=== PATIENT | male | born 1985 | race Hispanic/Latino ===

== ENCOUNTER 2020-07-29 08:43 | Emergency (ER) | payer BC, SELFPAY ==
--- NOTE | ~2020-07-29 | XR_ITS ---
XR chest 2V DATE: 07/29/2020 09:07 INDICATION: Upper chest pain, body aches TECHNIQUE: PA and lateral views COMPARISON: None FINDINGS: Normal heart size. No hilar or mediastinal enlargement. The lungs are normally inflated and clear of infiltrate or consolidation. No pleural effusion or pulmonary vascular congestion or pneumo thorax. Included skeletal structures are unremarkable. IMPRESSION: Negative Reviewed, dictated and finalized at location A. TSPERSON IMPRESSION: Negative
[2020-07-29 08:53] VITALS: BP 115/82; PULSE 60; RESP 18; TEMP 37; O2SAT 99
--- NOTE | 2020-07-29 08:56 | ED.URI ---
HPI - URI/Sore Throat General Chief Complaint: Upper Respiratory Infection Stated Complaint: body pain Source: patient Mode of arrival: ambulatory Limitations: no limitations History of Present Illness HPI Narrative: Patient is a 34-year-old male who presents with intermittent fever and sore throat, body aches, headache and fatigue. Patient reports symptoms started approximately 7 days ago. He denies cough and shortness of breath. He denies all other complaints. He denies pain at this time. MD elicited complaint: fever, cough, sore throat and other (Fatigue) Related Data Home Medications Medication Instructions Recorded Confirmed No Home Medications 07/29/20 07/29/20 Allergies Allergy/AdvReac Type Severity Reaction Status Date / Time peanut Allergy Unknown Unknown Verified 07/29/20 08:48 Review of Systems Review of Systems: Narrative: CONSTITUTIONAL: Reports intermittent fever, Reports body aches and fatigue EYES: Denies visual changes, redness, or discharge. ENT: Reports intermittent sore throat CARDIOVASCULAR: Denies chest pain, palpitations, or edema. RESPIRATORY: Denies cough or dyspnea. GASTROINTESTINAL: Denies abdominal pain, nausea, vomiting, or diarrhea. GENITOURINARY: Denies dysuria or hematuria. SKIN: Denies rash or itching. MUSCULOSKELETAL: Denies back pain, joint pain, or myalgia. NEUROLOGIC: Reports headache, denies numbness, dizziness, or weakness. PSYCHIATRIC: Denies anxiety or depression. PMFSH Past Medical History Medical History (Updated 07/29/20 @ 09:39 by ODIN Reich) No significant past medical history Surgical History Surgical History (Updated 07/29/20 @ 09:05 by ODIN Reich) No significant past surgical history Family History Family History Other No significant family history Social History Social History (Updated 07/29/20 @ 09:05 by ODIN Reich) Smoking status: Never smoker Alcohol intake: never Substance use: never Living arrangements: with family Occupation/Education: occupation Exam Narrative: Exam Narrative: GENERAL: Well-appearing, well-nourished, and in no acute distress. HEAD: Normocephalic, atraumatic. EYES: No redness or drainage. Conjunctiva are normal. ENT: Mucous membranes pink and moist. Nares clear. No rhinorrhea. Throat normal. Uvula midline. NECK: AROM. Supple. No lymphadenopathy. CHEST: No respiratory distress. Clear to auscultation. HEART: Regular rate and rhythm. EXTREMITIES: Normal range of motion. SKIN: Warm, dry, no rash. NEURO: No focal deficits. Alert and oriented x3. Gait steady. PSYCH: Normal affect. No signs of depression or anxiety. Course Vital Signs Vital signs: Vital Signs Temperature 37.0 C 07/29/20 08:53 Pulse Rate 60 07/29/20 08:53 Respiratory Rate 18 07/29/20 08:53 Blood Pressure 115/82 07/29/20 08:53 Pulse Oximetry 99 07/29/20 08:53 Temperature 37.0 C 07/29/20 08:53 Pulse Rate 60 07/29/20 08:53 Respiratory Rate 18 07/29/20 08:53 Blood Pressure 115/82 07/29/20 08:53 Pulse Oximetry 99 07/29/20 08:53 Reviewed MDM - URI/Sore Throat MDM Narrative Medical decision making narrative: Patient's rapid strep and influenza are negative. Discussed with patient symptoms are common with Covid. Discussed Covid testing with patient. Patient requesting Covid testing at this time. Patient aware of the need to quarantine. Or if he develops chest pain or shortness of breath that he needs to go to the emergency department immediately for further evaluation. Patient is stable for discharge to home with outpatient follow-up as needed. Differential Diagnosis Differential diagnosis: Likely upper respiratory infection, sinusitis, viral infection, bronchitis and other (Covid) Lab Data Lab results narrative: Negative strep, negative influenza Critical Care Time Critical Care Time Critical Care Time:
== END 2020-07-29 09:42 | disposition home or self-care (01) ==
PROVIDERS: Emergency Provider Nurse Practitioner
DX: J06.9 Acute upper respiratory infection, unspecified (principal); Z20.828 Contact with and (suspected) exposure to other viral communicable diseases
CPT/HCPCS: 71046; 87081; 87804; 87880; 99213; G0463

== ENCOUNTER 2022-01-06 18:13 | Emergency (ER) | payer BC, SELFPAY ==
[2022-01-06 18:28] VITALS: BP 134/78; PULSE 84; RESP 16; TEMP 36.9; O2SAT 98
--- NOTE | 2022-01-06 18:41 | ED.GENADULT ---
HPI - General Adult General Chief complaint: Upper Respiratory Infection Stated complaint: soret throat Source: patient Mode of arrival: ambulatory Limitations: no limitations History of Present Illness HPI narrative: Patient presents for evaluation of sore throat since Friday. He states he developed fever, cervical lymphadenopathy, generalized body aches. No chills, nausea, vomiting, diarrhea, cough, shortness of breath. No recent sick contacts to his knowledge. He does not smoke. He has been using tylenol and ibuprofen which do seem to help his symptoms. No additional complaints or concerns. Related Data Allergies Allergy/AdvReac Type Severity Reaction Status Date / Time peanut Allergy Unknown Unknown Verified 01/06/22 18:25 Review of Systems Review of Systems: CONSTITUTIONAL: Reports fever. Denies chills, or sweats. EYES: Denies visual changes, redness, or discharge. ENT: Reports sore throat. Denies rhinorrhea, nasal congestion, or otalgia. CARDIOVASCULAR: Denies chest pain, palpitations, or edema. RESPIRATORY: Denies cough or dyspnea. GASTROINTESTINAL: Denies abdominal pain, nausea, vomiting, or diarrhea. GENITOURINARY: Denies dysuria or hematuria. SKIN: Denies rash or itching. MUSCULOSKELETAL: Reports generalized body aches NEUROLOGIC: Denies headache, numbness, dizziness, or weakness. PSYCHIATRIC: Denies anxiety or depression. PMFSH Past Medical History Medical History No significant past medical history Surgical History Surgical History No significant past surgical history Family History Family History Other No significant family history Social History Social History Smoking status: Never smoker Alcohol intake: current Alcohol use details: social Substance use: never Gender identity (if verbalized by the patient): Male Sexual Orientation (if Verbalized by the Patient): Straight or Heterosexual Spiritual care concerns: No Exam Narrative: GENERAL: Well-appearing, well-nourished, and in no acute distress. HEAD: Normocephalic, atraumatic. EYES: PERRLA and EOMI. ENT: Nares clear, no rhinorrhea or epistaxis. Mucous membranes moist. Bilateral tonsillar enlargement with white exudate. Uvula is midline. Bilateral TMs pearly vasquez nonbulging NECK: Supple. No adenopathy or masses. No carotid bruits or JVD CHEST: Clear to auscultation. No respiratory distress. No wheezes rales or rhonchi HEART: Regular rate and rhythm. No murmur heard. Normal peripheral pulses. ABDOMEN: Soft, nontender, nondistended, normal active bowel sounds. EXTREMITIES: Normal range of motion. No edema. SKIN: Warm, dry, no rash. NEURO: No focal deficits. Alert and oriented x3. PSYCH: Normal mood and affect. Course Course Emergency Course: This is a 36-year-old male that presented with complaints of sore throat. Rapid strep was negative. However she has white exudate and tonsillar enlargement. We will treat with penicillin. Continue ibuprofen and Tylenol. Increase hydration. Follow-up outpatient. Go to the ER for difficulty breathing or swallowing. Patient agreed with plan of care. Level of Care: Express Care Visit Vital Signs Vital signs: Vital Signs Temperature 36.9 C 01/06/22 18:28 Pulse Rate 84 01/06/22 18:28 Respiratory Rate 16 01/06/22 18:28 Blood Pressure 134/78 01/06/22 18:28 Pulse Oximetry 98 01/06/22 18:28 Temperature 36.9 C 01/06/22 18:28 Pulse Rate 84 01/06/22 18:28 Respiratory Rate 16 01/06/22 18:28 Blood Pressure 134/78 01/06/22 18:28 Pulse Oximetry 98 01/06/22 18:28 Medical Decision Making Differential Diagnosis Differential Diagnosis: Strep pharyngitis versus mono versus other viral pharyngitis versus oropharyng
== END 2022-01-06 18:48 | disposition home or self-care (01) ==
PROVIDERS: Emergency Provider Nurse Practitioner; PCP Family Medicine
DX: J02.9 Acute pharyngitis, unspecified (principal)
CPT/HCPCS: 87081; 87880; 99213; G0463

== ENCOUNTER 2022-12-29 10:06 | Emergency (ER) | payer BC, SELFPAY ==
[2022-12-29 10:26] VITALS: BP 130/81; PULSE 61; RESP 16; TEMP 36.4; O2SAT 99
--- NOTE | 2022-12-29 11:16 | ED.URI ---
HPI - URI/Sore Throat General Chief Complaint: Upper Respiratory Infection Stated Complaint: bodyache,headache,sore throat Time Seen by Provider: 12/29/22 11:10 Source: patient, family, RN notes reviewed and old records reviewed Mode of arrival: ambulatory Limitations: no limitations History of Present Illness HPI Narrative: 37 year old male who presents to [facility] care accompanied by spouse and son with 3 day history of body aches with complaints of sore throatthis morning with sinus congestion and drainage.and some headache. Patient reports no fevers, chills or sweats, denies any cough or any shortness of breath, denies any ear pain. Patient has not been COVID vaccinated or had flu shot, has had COVID X2 in past, Patient reports no known ill contacts has not taken any OTC medications for his symptoms. MD elicited complaint: sore throat, rhinorrhea, nasal congestion and other (body aches, headache) Onset (ago): day(s) (3) Pain scale (0-10): 3 Able to tolerate fluids by mouth: Yes Treatments prior to arrival: none Related Data Home Medications Medication Instructions Recorded Confirmed No Home Medications 12/29/22 12/29/22 Allergies Allergy/AdvReac Type Severity Reaction Status Date / Time peanut Allergy Unknown Unknown Verified 12/29/22 10:36 Review of Systems Review of Systems: CONSTITUTIONAL:reports malaise, no chills, sweats, or fever. EYES: Denies visual changes, redness, or discharge. ENT: Reports rhinorrhea, congestion, sinus pain,no otalgia positive for sore throat. CARDIOVASCULAR: Denies chest pain, palpitations, or edema. RESPIRATORY: Reports no cough.? Denies dyspnea. GASTROINTESTINAL: Denies abdominal pain, nausea, vomiting, diarrhea SKIN: Denies rash or itching. MUSCULOSKELETAL: reports myalgia. NEUROLOGIC: reports headache. All systems reviewed & are unremarkable except as noted in HPI and below PMFSH Past Medical History Medical History (Updated 12/30/22 @ 16:44 by Latisha Ramírez NP) COVID-19 x2 Surgical History Surgical History No significant past surgical history Family History Family History Other No significant family history Social History Social History (Updated 12/30/22 @ 16:41 by Latisha Ramírez NP) Smoking status: Former smoker Alcohol intake: current Alcohol use details: social Substance use: never Living arrangements: with family Occupation/Education: occupation Gender identity (if verbalized by the patient): Male Sexual Orientation (if Verbalized by the Patient): Straight or Heterosexual Spiritual care concerns: No Comments At time of signature, agree with nursing past medical, surgical, social and family history. There is no relevant family history pertinent to the presenting complaint Exam Narrative: GENERAL: Well-appearing, well-nourished, and in no acute distress. HEAD: Normocephalic EYES: PERRLA, conjunctivae clear ENT: Nares clear, turbinates edematous and erythematous, clear discharge. Mucous membranes moist. TM pearly vasquez with dull light reflex bilaterally; no tragal tenderness. Oropharynx erythematous without lesions. Tonsils not enlarged and without exudate, no drooling, no hoarseness, no trismus, uvula midline.post nasal drainage noted NECK: Supple. No lymphadenopathy CHEST: Clear to auscultation, breath sounds equal. No wheezing, rhonchi, rales, or stridor. No respiratory distress, speaks in full sentences.no cough noted SAO2 99% on room air HEART: Regular rate and rhythm. No murmur heard. SKIN: Warm, dry, no rash. NEURO: Alert and oriented x3. PSYCH: Normal mood and affect Course Course Emergency Course: Patient is aware of diagnosis, understands and agrees to treatment plan.? Anticipatory guidance given.? Patient agrees to follow-up as directed and is aware of reaso
== END 2022-12-29 11:33 | disposition home or self-care (01) ==
PROVIDERS: Emergency Provider Registered Nurse; PCP Family Medicine
DX: J06.9 Acute upper respiratory infection, unspecified (principal); Z87.891 Personal history of nicotine dependence; Z86.16 Personal history of COVID-19
CPT/HCPCS: 87081; 87804; 87880; 99213; G0463